=== PATIENT | male | born 1955 | race Caucasian/White ===

== ENCOUNTER 2017-05-11 12:51 | Inpatient (IN) ==
[2017-05-11] MEDS ORDERED: Polyethylene Glycol 3350 255 GM POWDER PO PRN (18:52)
[2017-05-11] MEDS ORDERED: Loratadine 10 MG TABLET PO PRN (18:52)
[2017-05-11] MEDS ORDERED: *HR* OxyCODONE/APAP 5/325 TABLET PO SCH (20:00)
[2017-05-11] MEDS ORDERED: Furosemide 20 MG TABLET PO SCH (21:00)
[2017-05-11] MEDS ORDERED: Insulin DETEMIR 100 UNIT/ML per UNIT SQ SCH (21:00)
[2017-05-11] MEDS ORDERED: Insulin LISPRO 300 UNITS/3 ML VIAL SQ SCH (21:00)
[2017-05-11] MEDS: Aspirin Enteric Coated 325 MG Tablet PO SCH (22:06)
[2017-05-11] MEDS: Melatonin 3 MG TABLET PO PRN (22:07)
[2017-05-11] MEDS: Budesonide/Formoterol 160/4.5 MDI IH SCH (22:07)
[2017-05-11] MEDS: *HR* OxyCODONE/APAP 5/325 TABLET PO PRN (22:08)
[2017-05-12] MEDS: *HR* OxyCODONE/APAP 5/325 TABLET PO PRN ×4 (04:52→21:28)
[2017-05-12 05:46] LABS: Basophils % 0.3 %; Eosinophils # 0.6 K/mcL (0.0-0.6); Eosinophils % 6.3 %; Hematocrit 39.9 % (37.5-50.1); Hemoglobin 13.5 g/dL (12.9-16.9); Immature Granulocytes % 0.3 % (0-4); Lymphocytes # 1.7 K/mcL (0.6-4.6); Lymphocytes % 18.6 %; Mean Corpuscular HGB Conc 33.8 g/dL (31.6-35.5); Mean Corpuscular Hemoglobin 30.2 pg (28.0-33.3); Mean Corpuscular Volume 89.3 fL (83.0-100.0); Mean Platelet Volume 8.6 fL (9.4-12.4); Monocytes # 0.6 K/mcL (0.0-1.3); Monocytes % 6.3 %; Neutrophils # 6.1 K/mcL (1.6-8.9); Platelet Count 281 K/mcL (140-400); Red Blood Count 4.47 M/mcL (4.19-5.50); Red Cell Distribution Width 14.1 % (11.5-14.5); Segmented Neutrophils % 68.2 %
[2017-05-12 05:47] LABS: INR 1.1; Prothrombin Time 12.2 Seconds (9.4-12.1)
[2017-05-12 05:56] LABS: BUN/Creatinine Ratio 18 (6-26); Blood Urea Nitrogen 13 mg/dL (8-26); Calcium 9.5 mg/dL (8.6-10.8); Carbon Dioxide 25 mEq/L (19-29); Chloride 100 mEq/L (98-109); Glucose 175 mg/dL (70-99); Osmolality,Calculated 286 (280-300); Potassium 4.2 mEq/L (3.5-4.5); Sodium 136 mEq/L (136-145); eGFR For African Americans > 60 (> 60); eGFR For Non-African Americans > 60 (> 60)
[2017-05-12] MEDS: Insulin LISPRO 300 UNITS/3 ML VIAL SQ SCH ×3 (08:59→16:49)
[2017-05-12] MEDS: Furosemide 20 MG TABLET PO SCH ×2 (08:59→16:26)
[2017-05-12] MEDS: Budesonide/Formoterol 160/4.5 MDI IH SCH ×2 (08:59→20:33)
[2017-05-12] MEDS: Insulin DETEMIR 100 UNIT/ML X5UNITS SQ SCH ×2 (09:12→20:32)
--- NOTE | 2017-05-12 09:21 | Internal Med History&Physical ---
Date of Encounter: 05/12/17 Time of Encounter: 09:18 Assessment and Plan (1) S/P AAA repair Current visit: Yes Status: Acute PT OT to evaluate for therapeutic strengthening exercises, functional mobility, transfer and gait training. Patient has been making good progress. Still has weakness in the left lower leg. Reports that he requires assist with legs to get back into bed. Patient is still at risk for falls. Still has some balance issue. Able to ambulated; 5 feet today with contact guard. Gets tired fast. (2) Diabetes 1.5, managed as type 2 Current visit: Yes Status: Acute Accu-Chek 200 today Internal Medicine - H&P: HPI Admitted From: Intrahospital Transfer Plans for Post Hospital Care: Home History of present illness: Mr. Ruffin is a 62 year old male transferred to this facility status post AAA repair. The patient complications of spinal stroke. Patient has a history of coronary disease. He has had CABG surgery. He is diabetic. On today's examination he denies any chest pain. No shortness of breath. He still has some dyspnea on exertion. No nausea. No vomiting. Today's examination he still complains of right hip pain. Past Med Surg Social Fam HX - Past Medical History Medical history: aortic aneurysm, asthma, coronary artery disease, diabetes, hyperlipidemia, hypertension, myocardial infarction, other Psychiatric history: no psych history - Past Surgical History Surgical History: cholecystectomy, coronary bypass (CABG) - Social History Smoking Status: Former smoker Smokeless Tobacco Status: No Alcohol use: none Drug use: none - Family History Mother Hx Family Cardiac Disorders: Yes Hx Family Respiratory Disorders: No Hx Family Cancer: No Hx Family GI Disorders: No Hx Family Genitourinary Disorders: No Hx Family Endocrine Disorder: Yes (DM) Hx Family Musculoskeletal Disorders: No Hx Family Neuromuscular Disorders: No Hx Family Neurologic Disorders: No Hx Family HEENT Disorders: No Hx Family Autoimmune Disorders: No Hx Family Reproductive Disorders: No Hx Family Psychosocial Disorders: No Hx Family Medical Disorders: No Father Hx Family Cardiac Disorders: Yes Hx Family Respiratory Disorders: No Hx Family Cancer: No Hx Family GI Disorders: No Hx Family Genitourinary Disorders: No Hx Family Endocrine Disorder: Yes (DM) Hx Family Musculoskeletal Disorders: No Hx Family Neuromuscular Disorders: No Hx Family Neurologic Disorders: No Hx Family HEENT Disorders: No Hx Family Autoimmune Disorders: No Hx Family Reproductive Disorders: No Hx Family Psychosocial Disorders: No Hx Family Medical Disorders: No Internal Medicine - H&P: Meds Albuterol Sulfate [Proair Hfa] 2 inh IH Q6HR PRN 05/11/17 [History] Aspirin [Ecotrin] 325 mg PO HS 05/11/17 [History] Budesonide/Formoterol 160/4.5 [Symbicort 160/4.5] 2 inh IH BID 05/11/17 [History ] Cetirizine HCl [Zyrtec] 10 mg PO DAILY PRN 05/11/17 [History] Clopidogrel Bisulfate [Plavix] 75 mg PO DAILY 05/11/17 [History] Furosemide [Lasix] 20 mg PO BID 05/11/17 [History] Insulin DETEMIR [Levemir] 40 unit SQ BID 05/11/17 [History] Insulin LISPRO [HumaLOG] 26 units SQ TID 05/11/17 [History] Melatonin [Melatin] 3 mg PO HS PRN 05/11/17 [History] Naproxen Sodium [Aleve] 220 mg PO BID PRN 05/11/17 [History] OxyCODONE/APAP 5/325 [Percocet 5/325 MG] 1 each PO Q4HR 05/11/17 [History] Polyethylene Glycol 3350 [MiraLAX Powder Bulk 17.9 Oz] 17 g PO DAILY PRN [History] Potassium Chloride [K-Tab ER] 10 meq PO DAILY 05/11/17 [History] Potassium Chloride [K-Tab ER] 10 meq PO DAILY 05/11/17 [History] Allergies Cephalosporins Allergy (Verified 05/11/17 18:39) Anaphylaxis montelukast [From Singulair] Allergy (Verified 05/11/17 18:39) Hives Penicillins Allergy (Verified 05/11/17 18:39) Anaphylaxis yellow dye Allergy (Verified 05/11/17 18:39) Anaphylaxis metformin Adverse Reaction (Verified 05/11/17 18:39) Muscle Pain Fbnyjiu-Cxf-Flj Reductase Inhibitor [Statins] Adverse Reaction (Verified 18:39) Muscle Pain All Systems PM: A 10-system review of systems was performed and is negative for pertinent findings except as documented above in the HPI. - Constitutional Constitutional: fatigue - Cardiovascular Cardiovascular ROS IM: dyspnea on exertion, no chest pain, no diaphoresis, no dyspnea, no lightheadedness, no palpitations, no syncope - Respiratory Respiratory: no cough, no dyspnea, no wheezing, no excessive phlegm production - Gastrointestinal Gastrointestinal: no abdominal pain, no diarrhea, no hematemesis, no hematochezia, no melena, no nausea, no vomiting - Musculoskeletal Musculoskeletal ROS IM: arthralgias, back pain, stiffness - Constitutional Vitals: Temp Pulse Resp BP Pulse Ox 97.6 F 72 18 146/84 93 05/12/17 08:42 05/12/17 08:42 05/12/17 08:42 05/12/17 08:42 05/12/17 08:42 General appearance: Present: A&O X 3, pleasant, no acute distress - Respiratory Respiratory exam: Present: CTAB. Absent: accessory muscle use, rales, rhonchi, wheezes - Cardiovascular Cardiovascular exam: Present: RRR, +S1, +S2. Absent: diastolic murmur, gallop, rubs, systolic murmur - GI/Abdominal GI/Abdominal exam: Present: normal bowel sounds, soft, no peritoneal signs. Absent: distended, tenderness - Extremities Exam Extremities exam: Present: warm, radial pulses palpable and symetrical. Absent : calf tenderness, cyanotic, pedal edema - Neurological Exam Neurological exam: Present: CN II-XII intact, oriented X3. Absent: facial droop , speech deficit Internal Med - H&P Results - Labs CBC & Chem 7: 05/12/17 05:30 05/12/17 05:30 Labs: Short CBC 05/12/17 Range/Units 05:30 WBC 8.9 (4.3-11.1) K/mcL Hgb 13.5 (12.9-16.9) g/dL Hct 39.9 (37.5-50.1) % Plt Count 281 (140-400) K/mcL Neutrophils # 6.1 (1.6-8.9) K/mcL BMP 05/12/17 05:30 Sodium 136 Potassium 4.2 Chloride 100 Carbon Dioxide 25 BUN 13 Creatinine 0.74 Glucose 175 H Calcium 9.5 - VTE Documentation of Mechanical Device: Graduated compression elastic hosiery
[2017-05-12] MEDS: Aspirin Enteric Coated 325 MG Tablet PO SCH (20:33)
[2017-05-12] MEDS: Melatonin 3 MG TABLET PO PRN (20:33)
[2017-05-13] MEDS: *HR* OxyCODONE/APAP 5/325 TABLET PO PRN ×3 (04:45→14:09)
[2017-05-13] MEDS: Furosemide 20 MG TABLET PO SCH ×2 (08:29→17:33)
[2017-05-13] MEDS: Budesonide/Formoterol 160/4.5 MDI IH SCH ×2 (08:30→21:11)
[2017-05-13] MEDS: Insulin LISPRO 300 UNITS/3 ML VIAL SQ SCH ×3 (08:30→17:33)
[2017-05-13] MEDS: Insulin DETEMIR 100 UNIT/ML X5UNITS SQ SCH ×2 (08:31→21:09)
--- NOTE | 2017-05-13 13:35 | Internal Med Progress Note ---
Date of Encounter: 05/13/17 Time of Encounter: 13:33 - Assessment and plan (1) Infarction of spinal cord Current Visit: Yes Status: Acute Assessment and plan: Patient's here in therapy for arouses left lower extremity. This is improving and had an infarction of the spinal cord (2) S/P AAA repair Current Visit: Yes Status: Acute Assessment and plan: Apparently had a AAA repair and I am assuming then some blood supply was lost to that area of the cord (3) Diabetes 1.5, managed as type 2 Current Visit: Yes Status: Acute Assessment and plan: Following blood sugar - Time Spent With Patient less than 15 minutes - Subjective Interval history: Patient's doing well patient is relatively young. He had infarct and ischemic episode of his spinal cord. The good news is what was paralyzed in the hospital acutely there is now back to having feeling and some function. I suspect he should get 85-90% of his function back and is working with all of her therapist - Constitutional Vitals: Temp Pulse Resp BP Pulse Ox 97.3 F L 79 16 127/74 95 05/13/17 07:45 05/13/17 07:45 05/13/17 07:45 05/13/17 07:45 05/13/17 07:45 General appearance: Present: A&O X 3, pleasant, no acute distress - Head Head exam: Present: atraumatic, normal inspection, normocephalic - Neck Neck exam general surgery: Present: supple, trachea midline. Absent: lymphadenopathy - Respiratory Respiratory exam: Present: CTAB. Absent: accessory muscle use, rales, rhonchi, wheezes - Cardiovascular Cardiovascular exam: Present: RRR, +S1, +S2. Absent: diastolic murmur, gallop, rubs, systolic murmur Internal Medicine: Result - Labs CBC & Chem 7: 05/12/17 05:30 05/12/17 05:30 Labs: Lab is stable - ABG Interpretation ABG results: PT/INR, D-dimer PT 12.2 Seconds (9.4-12.1) H 05/12/17 05:30 - VTE Documentation of Mechanical Device: Graduated compression elastic hosiery Consult Discharge Plan - Plan Referrals: Binta Hebert, MILITARY TECHNOLOGY MANAGER [Primary Care Provider] -
--- NOTE | 2017-05-13 15:20 | Physcial Medicine-Consult Note ---
Date of Encounter: 05/13/17 Time of Encounter: 15:16 Physical Medicine - AP (1) Infarction of spinal cord Status: Acute Assessment and plan: 1. Mr. Ruffin has had significant return of function in his lower limbs since his initial infarct. He is currently suffering from pain and spasms in the hips. We will begin prn flexeril to address his muscle spasms and diminish his reliance on oxycodone for pain. He is unable to take gabapentin due to intolerance of side effects from the medication. At this point, his dysesthesias are not causing him significant distress. He will continue with intensive PT/OT/TR to address gait, safety, transfers and ADLs. Code(s): G95.11 - Acute infarction of spinal cord (embolic) (nonembolic) SNOMED Code(s): 972974586 Physical Medicine - HPI - Data of Consult Patient: new to practice Consult date: 05/13/17 Requesting Physician: Kang Meadows DO Primary Care Provider: Binta Hebert - Consult Narrative Reason for consult: Spinal cord injury History of present illness: Mr. Ruffin is a 62 year old male who underwent repair for an abdominal aortic aneurysm on 05/04/17. Patient awoke following surgery with bilateral lower limb paresis. Initial head CT was negative for infarct. An mri of his spinal cord revealed a spinal cord infarct. He has had significant return of function to the lower limbs. He denies any bladder incontinence. He is complaining of constipation. He reports pain and muscle spasm in the right gluteal muscle. He continues to have weakness in the left foot. CC: Kang Meadows DO Past Med Surg Social Fam HX - Past Medical History Medical history: aortic aneurysm, asthma, coronary artery disease, diabetes, hyperlipidemia, hypertension, myocardial infarction, other Psychiatric history: no psych history - Past Surgical History Surgical History: cholecystectomy, coronary bypass (CABG) - Social History Smoking Status: Former smoker Smokeless Tobacco Status: No Alcohol use: none Drug use: none - Family History Mother Hx Family Cardiac Disorders: Yes Hx Family Respiratory Disorders: No Hx Family Cancer: No Hx Family GI Disorders: No Hx Family Genitourinary Disorders: No Hx Family Endocrine Disorder: Yes (DM) Hx Family Musculoskeletal Disorders: No Hx Family Neuromuscular Disorders: No Hx Family Neurologic Disorders: No Hx Family HEENT Disorders: No Hx Family Autoimmune Disorders: No Hx Family Reproductive Disorders: No Hx Family Psychosocial Disorders: No Hx Family Medical Disorders: No Father Hx Family Cardiac Disorders: Yes Hx Family Respiratory Disorders: No Hx Family Cancer: No Hx Family GI Disorders: No Hx Family Genitourinary Disorders: No Hx Family Endocrine Disorder: Yes (DM) Hx Family Musculoskeletal Disorders: No Hx Family Neuromuscular Disorders: No Hx Family Neurologic Disorders: No Hx Family HEENT Disorders: No Hx Family Autoimmune Disorders: No Hx Family Reproductive Disorders: No Hx Family Psychosocial Disorders: No Hx Family Medical Disorders: No Medications and Allergies Albuterol Sulfate [Proair Hfa] 2 inh IH Q6HR PRN 05/11/17 [History] Aspirin [Ecotrin] 325 mg PO HS 05/11/17 [History] Budesonide/Formoterol 160/4.5 [Symbicort 160/4.5] 2 inh IH BID 05/11/17 [History ] Cetirizine HCl [Zyrtec] 10 mg PO DAILY PRN 05/11/17 [History] Clopidogrel Bisulfate [Plavix] 75 mg PO DAILY 05/11/17 [History] Furosemide [Lasix] 20 mg PO BID 05/11/17 [History] Insulin DETEMIR [Levemir] 40 unit SQ BID 05/11/17 [History] Insulin LISPRO [HumaLOG] 26 units SQ TID 05/11/17 [History] Melatonin [Melatin] 3 mg PO HS PRN 05/11/17 [History] Naproxen Sodium [Aleve] 220 mg PO BID PRN 05/11/17 [History] OxyCODONE/APAP 5/325 [Percocet 5/325 MG] 1 each PO Q4HR 05/11/17 [History] Polyethylene Glycol 3350 [MiraLAX Powder Bulk 17.9 Oz] 17 g PO DAILY PRN [History] Potassium Chloride [K-Tab ER] 10 meq PO DAILY 05/11/17 [History] Potassium Chloride [K-Tab ER] 10 meq PO DAILY 05/11/17 [History] Allergies Cephalosporins Allergy (Verified 05/11/17 18:39) Anaphylaxis montelukast [From Singulair] Allergy (Verified 05/11/17 18:39) Hives Penicillins Allergy (Verified 05/11/17 18:39) Anaphylaxis yellow dye Allergy (Verified 05/11/17 18:39) Anaphylaxis metformin Adverse Reaction (Verified 05/11/17 18:39) Muscle Pain Bmavvdq-Ome-Ysf Reductase Inhibitor [Statins] Adverse Reaction (Verified 18:39) Muscle Pain - Constitutional Constitutional: Present: weakness. Absent: anorexia, chills, fever(s) - Cardiovascular Cardiovascular: Absent: chest pain, diaphoresis - Respiratory Respiratory: Absent: dyspnea on exertion - Gastrointestinal Gastrointestinal: Present: constipation. Absent: abdominal pain, fecal incontinence, nausea - Genitourinary Genitourinary: as per HPI - Musculoskeletal Musculoskeletal: Present: abnormal gait, arthralgias, back pain - Neurological Neurological: Present: focal weakness, paresthesias, tingling Physical Medicine - Exam - Constitutional Vitals: Temp Pulse Resp BP Pulse Ox 97.3 F L 79 16 127/74 95 05/13/17 07:45 05/13/17 07:45 05/13/17 07:45 05/13/17 07:45 05/13/17 07:45 General appearance: cooperative, no acute distress - Head Head exam: Present: atraumatic, normal inspection - Respiratory Respiratory exam: Present: CTAB - Cardiovascular Cardiovascular exam: Present: RRR - GI/Abdominal GI/Abdominal exam: Present: diminished bowel sounds, soft. Absent: tenderness - Extremities Exam Extremities exam: Absent: calf tenderness Additional comments: Lower limb reflexes are absent symmetrically in the lower limbs. No clonus on exam. Motor strength is 5/5 in the bilateral lower limbs with the exception of left DF 4/5, EHL 3/5, PF 4/5. Physical Medicine - Results - Labs CBC & Chem 7: 05/12/17 05:30 05/12/17 05:30 Consult Discharge Plan - Plan Referrals: Binta Hebert CNP [Primary Care Provider] -
[2017-05-13] MEDS: Aspirin Enteric Coated 325 MG Tablet PO SCH (21:09)
[2017-05-14] MEDS: *HR* OxyCODONE/APAP 5/325 TABLET PO PRN ×4 (00:11→21:30)
[2017-05-14] MEDS: Insulin DETEMIR 100 UNIT/ML X5UNITS SQ SCH ×2 (07:47→21:32)
[2017-05-14] MEDS: Furosemide 20 MG TABLET PO SCH ×2 (07:47→17:01)
[2017-05-14] MEDS: Budesonide/Formoterol 160/4.5 MDI IH SCH ×2 (07:48→21:30)
[2017-05-14] MEDS: Insulin LISPRO 300 UNITS/3 ML VIAL SQ SCH ×3 (07:48→16:56)
--- NOTE | 2017-05-14 11:55 | Internal Med Progress Note ---
Date of Encounter: 05/14/17 Time of Encounter: 11:53 - Assessment and plan (1) Infarction of spinal cord Current Visit: Yes Status: Acute Assessment and plan: continiuing therapy.slowly improving function. (2) S/P AAA repair Current Visit: Yes Status: Acute Assessment and plan: healing so far very well. (3) Diabetes 1.5, managed as type 2 Current Visit: Yes Status: Acute Assessment and plan: following blood sugars. - Time Spent With Patient less than 15 minutes - Subjective Interval history: pt. c/o legs rubberly after muscle relxant. Will hold. Blood sugars high.Is on sliding scale. - Constitutional Vitals: Temp Pulse Resp BP Pulse Ox 97.8 F 78 16 139/86 93 05/14/17 07:07 05/14/17 07:07 05/14/17 07:07 05/14/17 07:07 05/14/17 07:07 General appearance: Present: A&O X 3, pleasant, no acute distress - Head Head exam: Present: atraumatic, normal inspection, normocephalic - Neck Neck exam general surgery: Present: supple, trachea midline. Absent: lymphadenopathy - Respiratory Respiratory exam: Present: CTAB. Absent: accessory muscle use, rales, rhonchi, wheezes - Cardiovascular Cardiovascular exam: Present: RRR, +S1, +S2. Absent: diastolic murmur, gallop, rubs, systolic murmur Internal Medicine: Result - Labs CBC & Chem 7: 05/12/17 05:30 05/12/17 05:30 Labs: lab ok except for blood sugars. - ABG Interpretation ABG results: PT/INR, D-dimer PT 12.2 Seconds (9.4-12.1) H 05/12/17 05:30 - VTE Documentation of Mechanical Device: Graduated compression elastic hosiery Consult Discharge Plan - Plan Referrals: Binta Hebert, RUBBER AND PLASTICS WORKER [Primary Care Provider] -
[2017-05-14] MEDS: Aspirin Enteric Coated 325 MG Tablet PO SCH (21:30)
[2017-05-14] MEDS: Melatonin 3 MG TABLET PO PRN (21:30)
[2017-05-15] MEDS: *HR* OxyCODONE/APAP 5/325 TABLET PO PRN ×4 (04:44→22:20)
[2017-05-15] MEDS: Furosemide 20 MG TABLET PO SCH ×2 (08:26→17:18)
[2017-05-15] MEDS: Insulin LISPRO 300 UNITS/3 ML VIAL SQ SCH ×3 (08:26→17:09)
[2017-05-15] MEDS: Insulin DETEMIR 100 UNIT/ML X5UNITS SQ SCH ×2 (08:38→20:38)
[2017-05-15] MEDS: Budesonide/Formoterol 160/4.5 MDI IH SCH ×2 (08:41→20:37)
--- NOTE | 2017-05-15 14:12 | Internal Med Progress Note ---
Date of Encounter: 05/15/17 Time of Encounter: 14:10 - Assessment and plan (1) Infarction of spinal cord Current Visit: Yes Status: Acute Assessment and plan: Patient apparently also blunts spinal cord infarction post AAA repair (2) S/P AAA repair Current Visit: Yes Status: Acute Assessment and plan: She no triple a repair (3) Diabetes 1.5, managed as type 2 Current Visit: Yes Status: Acute Assessment and plan: noted - Time Spent With Patient less than 15 minutes - Subjective Interval history: Earlier date if symptoms from the muscle relaxant have resolved. Patient's myeloid legs are better eating and doing well. - Constitutional Vitals: Temp Pulse Resp BP Pulse Ox 97.8 F 72 14 122/77 92 05/15/17 07:22 05/15/17 07:22 05/15/17 07:22 05/15/17 07:22 05/15/17 07:22 General appearance: Present: A&O X 3, pleasant, no acute distress - Head Head exam: Present: atraumatic, normocephalic - Neck Neck exam general surgery: Present: supple, trachea midline. Absent: lymphadenopathy - Respiratory Respiratory exam: Present: CTAB. Absent: accessory muscle use, rales, rhonchi, wheezes - Cardiovascular Cardiovascular exam: Present: RRR, +S1, +S2. Absent: diastolic murmur, gallop, rubs, systolic murmur Internal Medicine: Result - Labs CBC & Chem 7: 05/12/17 05:30 05/12/17 05:30 Labs: Lab is stable following blood sugars - ABG Interpretation ABG results: PT/INR, D-dimer PT 12.2 Seconds (9.4-12.1) H 05/12/17 05:30 - VTE Documentation of Mechanical Device: Graduated compression elastic hosiery Consult Discharge Plan - Plan Referrals: Binta Hebert CNP [Primary Care Provider] -
[2017-05-15] MEDS: Melatonin 3 MG TABLET PO PRN (20:37)
[2017-05-15] MEDS: Aspirin Enteric Coated 325 MG Tablet PO SCH (20:37)
[2017-05-16] MEDS: *HR* OxyCODONE/APAP 5/325 TABLET PO PRN ×5 (04:52→21:00)
[2017-05-16] MEDS: Furosemide 20 MG TABLET PO SCH ×2 (08:14→16:07)
[2017-05-16] MEDS: Insulin DETEMIR 100 UNIT/ML X5UNITS SQ SCH ×2 (08:14→21:02)
[2017-05-16] MEDS: Insulin LISPRO 300 UNITS/3 ML VIAL SQ SCH ×3 (08:15→16:38)
[2017-05-16] MEDS: Budesonide/Formoterol 160/4.5 MDI IH SCH ×2 (12:34→21:00)
--- NOTE | 2017-05-16 18:56 | Internal Med Progress Note ---
Date of Encounter: 05/16/17 Time of Encounter: 18:53 - Assessment and plan (1) S/P AAA repair Current Visit: Yes Status: Acute Assessment and plan: T and OT have been working to improve his endurance, safety and improving his ADLs.has had significant return of function in his lower limbs since his initial infarct. He is currently suffering from pain and spasms in the hips. Flexeril is helping with the muscle spasm (2) Diabetes 1.5, managed as type 2 Current Visit: Yes Status: Acute Assessment and plan: Accu-Chek 185 this morning. On Levemir and Humalog oted - Time Spent With Patient less than 15 minutes - Subjective Interval history: Feels tired today. No new complaints otherwise. No headache. No shortness of breath. No chest pain. Is able to walk alcohol today with minimal discomfort however he got tired. - Constitutional Vitals: Temp Pulse Resp BP Pulse Ox 98.1 F 65 15 132/63 94 05/16/17 07:31 05/16/17 07:31 05/16/17 07:31 05/16/17 07:31 05/16/17 07:31 General appearance: Present: A&O X 3, pleasant, no acute distress - Respiratory Respiratory exam: Present: CTAB. Absent: accessory muscle use, rales, rhonchi, wheezes - Cardiovascular Cardiovascular exam: Present: RRR, +S1, +S2. Absent: diastolic murmur, gallop, rubs, systolic murmur - GI/Abdominal GI/Abdominal exam: Present: normal bowel sounds, soft, no peritoneal signs. Absent: distended, tenderness - Expanded Lower Extremities Exam Lower Leg exam: Present: swelling Internal Medicine: Result - Labs CBC & Chem 7: 05/12/17 05:30 05/12/17 05:30 - ABG Interpretation ABG results: PT/INR, D-dimer PT 12.2 Seconds (9.4-12.1) H 05/12/17 05:30 - VTE Documentation of Mechanical Device: Graduated compression elastic hosiery Consult Discharge Plan - Plan Referrals: Binta Hebert, KENYON [Primary Care Provider] -
[2017-05-16] MEDS: Melatonin 3 MG TABLET PO PRN (21:00)
[2017-05-16] MEDS: Aspirin Enteric Coated 325 MG Tablet PO SCH (21:00)
[2017-05-17] MEDS: *HR* OxyCODONE/APAP 5/325 TABLET PO PRN ×3 (05:30→21:33)
[2017-05-17] MEDS: Budesonide/Formoterol 160/4.5 MDI IH SCH ×2 (08:29→21:35)
[2017-05-17] MEDS: Insulin LISPRO 300 UNITS/3 ML VIAL SQ SCH ×3 (08:30→17:13)
[2017-05-17] MEDS: Furosemide 20 MG TABLET PO SCH ×2 (08:35→17:13)
[2017-05-17] MEDS: Insulin DETEMIR 100 UNIT/ML X5UNITS SQ SCH ×2 (08:37→21:34)
--- NOTE | 2017-05-17 09:10 | Internal Med Progress Note ---
Date of Encounter: 05/17/17 Time of Encounter: 09:09 - Assessment and plan (1) S/P AAA repair Current Visit: Yes Status: Acute Assessment and plan: T and OT have been working to improve his endurance, safety and improving his ADLs.has had significant return of function in his lower limbs since his initial infarct. He is currently suffering from pain and spasms in the hips. Flexeril is helping with the muscle spasm (2) Diabetes 1.5, managed as type 2 Current Visit: Yes Status: Acute Assessment and plan: Accu-Chek 185 this morning. On Levemir and Humalog oted - Time Spent With Patient less than 15 minutes - Subjective Interval history: Feels tired today. No new complaints otherwise. No headache. No shortness of breath. No chest pain. Is able to walk further today with minimal discomfort however he got tired. - Constitutional Vitals: Temp Pulse Resp BP Pulse Ox 97.6 F 66 18 149/79 96 05/17/17 07:24 05/17/17 07:24 05/17/17 07:24 05/17/17 07:24 05/17/17 07:24 General appearance: Present: A&O X 3, pleasant, no acute distress - Respiratory Respiratory exam: Present: CTAB. Absent: accessory muscle use, rales, rhonchi, wheezes - Cardiovascular Cardiovascular exam: Present: RRR, +S1, +S2. Absent: diastolic murmur, gallop, rubs, systolic murmur - GI/Abdominal GI/Abdominal exam: Present: normal bowel sounds, soft, no peritoneal signs. Absent: distended, tenderness - Extremities Exam Extremities exam: Present: warm, radial pulses palpable and symetrical. Absent : calf tenderness, cyanotic, pedal edema Internal Medicine: Result - Labs CBC & Chem 7: 05/12/17 05:30 05/12/17 05:30 - ABG Interpretation ABG results: PT/INR, D-dimer PT 12.2 Seconds (9.4-12.1) H 05/12/17 05:30 - VTE Documentation of Mechanical Device: Graduated compression elastic hosiery Consult Discharge Plan - Plan Referrals: Binta Hebert, KENYON [Primary Care Provider] -
[2017-05-17] MEDS: Melatonin 3 MG TABLET PO PRN (21:33)
[2017-05-17] MEDS: Aspirin Enteric Coated 325 MG Tablet PO SCH (21:33)
[2017-05-18] MEDS: *HR* OxyCODONE/APAP 5/325 TABLET PO PRN ×4 (05:00→21:43)
[2017-05-18 05:34] LABS: BUN/Creatinine Ratio 12 (6-26); Blood Urea Nitrogen 9 mg/dL (8-26); Calcium 9.2 mg/dL (8.6-10.8); Carbon Dioxide 27 mEq/L (19-29); Chloride 102 mEq/L (98-109); Glucose 177 mg/dL (70-99); Osmolality,Calculated 289 (280-300); Potassium 4.5 mEq/L (3.5-4.5); Sodium 138 mEq/L (136-145); eGFR For African Americans > 60 (> 60); eGFR For Non-African Americans > 60 (> 60)
[2017-05-18 05:35] LABS: Basophils # 0.1 K/mcL (0.0-0.2); Basophils % 0.6 %; Eosinophils # 0.7 K/mcL (0.0-0.6); Eosinophils % 8.4 %; Hematocrit 38.8 % (37.5-50.1); Hemoglobin 13.1 g/dL (12.9-16.9); Immature Granulocytes % 0.4 % (0-4); Lymphocytes # 1.6 K/mcL (0.6-4.6); Lymphocytes % 19.7 %; Mean Corpuscular HGB Conc 33.8 g/dL (31.6-35.5); Mean Corpuscular Hemoglobin 30.5 pg (28.0-33.3); Mean Corpuscular Volume 90.2 fL (83.0-100.0); Mean Platelet Volume 8.8 fL (9.4-12.4); Monocytes # 0.6 K/mcL (0.0-1.3); Monocytes % 7.8 %; Neutrophils # 5.1 K/mcL (1.6-8.9); Platelet Count 353 K/mcL (140-400); Segmented Neutrophils % 63.1 %
[2017-05-18] MEDS: Insulin DETEMIR 100 UNIT/ML X5UNITS SQ SCH ×2 (08:09→20:58)
[2017-05-18] MEDS: Furosemide 20 MG TABLET PO SCH ×2 (08:09→16:45)
[2017-05-18] MEDS: Insulin LISPRO 300 UNITS/3 ML VIAL SQ SCH ×3 (08:09→16:47)
[2017-05-18] MEDS: Budesonide/Formoterol 160/4.5 MDI IH SCH ×2 (08:10→20:58)
--- NOTE | 2017-05-18 13:42 | Internal Med Progress Note ---
Date of Encounter: 05/18/17 Time of Encounter: 13:40 - Assessment and plan (1) Infarction of spinal cord Current Visit: Yes Status: Acute Assessment and plan: Patient apparently had a infarction spinal cord due to stent placement of the aorta. This is really generally resolved in terms of function of his left side especially his left leg. (2) S/P AAA repair Current Visit: Yes Status: Acute Assessment and plan: Adolph healing well (3) Diabetes 1.5, managed as type 2 Current Visit: Yes Status: Acute Assessment and plan: Noted being followed. - Time Spent With Patient less than 15 minutes - Subjective Interval history: Patient significantly improved since last week. I am going to discuss whether he feels that depression is a problem or not. He is improved though mentally significantly with the improvement of his function and leg - Constitutional Vitals: Temp Pulse Resp BP Pulse Ox 97.8 F 67 18 139/81 94 05/18/17 07:00 05/18/17 07:00 05/18/17 07:00 05/18/17 07:00 05/18/17 07:00 General appearance: Present: A&O X 3, pleasant, no acute distress - Head Head exam: Present: atraumatic, normal inspection, normocephalic - Neck Neck exam general surgery: Present: supple, trachea midline. Absent: lymphadenopathy - Respiratory Respiratory exam: Present: CTAB. Absent: accessory muscle use, rales, rhonchi, wheezes - Cardiovascular Cardiovascular exam: Present: RRR, +S1, +S2. Absent: diastolic murmur, gallop, rubs, systolic murmur Internal Medicine: Result - Labs CBC & Chem 7: 05/18/17 04:55 05/18/17 04:55 Labs: Short CBC 05/18/17 Range/Units 04:55 WBC 8.1 (4.3-11.1) K/mcL Hgb 13.1 (12.9-16.9) g/dL Hct 38.8 (37.5-50.1) % Plt Count 353 (140-400) K/mcL Neutrophils # 5.1 (1.6-8.9) K/mcL BMP 05/18/17 04:55 Sodium 138 Potassium 4.5 Chloride 102 Carbon Dioxide 27 BUN 9 Creatinine 0.76 Glucose 177 H Calcium 9.2 Lab is okay - ABG Interpretation ABG results: PT/INR, D-dimer PT 12.2 Seconds (9.4-12.1) H 05/12/17 05:30 - VTE Documentation of Mechanical Device: Graduated compression elastic hosiery Consult Discharge Plan - Plan Referrals: Binta Hebert CNP [Primary Care Provider] -
[2017-05-18] MEDS: Aspirin Enteric Coated 325 MG Tablet PO SCH (20:58)
[2017-05-18] MEDS: Melatonin 3 MG TABLET PO PRN (20:58)
[2017-05-19] MEDS: *HR* OxyCODONE/APAP 5/325 TABLET PO PRN ×4 (04:46→21:58)
[2017-05-19] MEDS: Insulin LISPRO 300 UNITS/3 ML VIAL SQ SCH ×3 (08:10→16:50)
[2017-05-19] MEDS: Furosemide 20 MG TABLET PO SCH ×2 (08:26→17:38)
[2017-05-19] MEDS: Budesonide/Formoterol 160/4.5 MDI IH SCH ×2 (08:26→22:00)
[2017-05-19] MEDS: Insulin DETEMIR 100 UNIT/ML X5UNITS SQ SCH ×3 (08:26→21:57)
--- NOTE | 2017-05-19 13:14 | Internal Med Progress Note ---
Date of Encounter: 05/19/17 Time of Encounter: 13:12 - Assessment and plan (1) Infarction of spinal cord Current Visit: Yes Status: Acute Assessment and plan: This is significantly improved. With going from paralysis to the left leg now ambulating in the garner with a walker (2) S/P AAA repair Current Visit: Yes Status: Acute Assessment and plan: Sully well (3) Diabetes 1.5, managed as type 2 Current Visit: Yes Status: Acute Assessment and plan: Being followed - Time Spent With Patient less than 15 minutes - Subjective Interval history: Patient ambulating between the room and the gym and along the halls. Doing well very satisfactory progress - Constitutional Vitals: Temp Pulse Resp BP Pulse Ox 98.8 F 64 16 143/84 94 05/19/17 07:11 05/19/17 07:11 05/19/17 07:11 05/19/17 07:11 05/19/17 07:11 General appearance: Present: cooperative, A&O X 3, pleasant, no acute distress - Head Head exam: Present: atraumatic, normal inspection, normocephalic - Neck Neck exam general surgery: Present: supple, trachea midline. Absent: lymphadenopathy - Respiratory Respiratory exam: Present: CTAB. Absent: accessory muscle use, rales, rhonchi, wheezes - Cardiovascular Cardiovascular exam: Present: RRR, +S1, +S2. Absent: diastolic murmur, gallop, rubs, systolic murmur Internal Medicine: Result - Labs CBC & Chem 7: 05/18/17 04:55 05/18/17 04:55 Labs: Lab is stable - ABG Interpretation ABG results: PT/INR, D-dimer PT 12.2 Seconds (9.4-12.1) H 05/12/17 05:30 - VTE Documentation of Mechanical Device: Graduated compression elastic hosiery Consult Discharge Plan - Plan Referrals: Binta Hebert FRUIT DUMPER [Primary Care Provider] -
[2017-05-19] MEDS: Melatonin 3 MG TABLET PO PRN (21:57)
[2017-05-19] MEDS: Aspirin Enteric Coated 325 MG Tablet PO SCH (21:57)
[2017-05-20] MEDS: *HR* OxyCODONE/APAP 5/325 TABLET PO PRN ×4 (05:31→21:27)
[2017-05-20] MEDS: Furosemide 20 MG TABLET PO SCH ×2 (08:09→16:37)
[2017-05-20] MEDS: Insulin DETEMIR 100 UNIT/ML X5UNITS SQ SCH ×2 (08:09→21:26)
[2017-05-20] MEDS: Insulin LISPRO 300 UNITS/3 ML VIAL SQ SCH ×3 (08:10→16:38)
[2017-05-20] MEDS: Budesonide/Formoterol 160/4.5 MDI IH SCH ×2 (08:11→16:40)
--- NOTE | 2017-05-20 12:37 | Physical Med Progress Note ---
Date of Encounter: 05/20/17 Time of Encounter: 12:30 Assessment and Plan (1) Infarction of spinal cord Current Visit: Yes Status: Acute Physical Medicine-PN: Subj Interval history: PMR PCC Note Mr. Ruffin is ambulating a 150-200feet with a wheeled walker. He complains of occasional vertigo. No falls. Patient is independent in the room. Plan for continued PT after discharge. Plan for discharge 05/21/17. - Constitutional Vitals: Vital Signs Temp Pulse Resp BP Pulse Ox 05/20/17 06:59 97.1 F L 64 16 133/79 95 05/19/17 21:00 98.4 F 72 17 138/76 95 Intake and Output 05/19/17 05/20/17 05/20/17 23:59 07:59 15:59 Intake Total 480 / 480 300 / 300 480 / 480 Output Total 550 / 550 Balance 480 / 480 -250 / -250 480 / 480 Intake: Oral 480 / 480 300 / 300 480 / 480 Output: Urine 550 / 550 Other: Meal Dinner Breakfast Percent of Meal Consumed 100% 100% # Voids 1 Blood Glucose* 196 204 133 Physical Medicine-PN: Obj Data - Labs CBC & Chem 7: 05/18/17 04:55 05/18/17 04:55 Labs: Laboratory Results - last 24 hr 05/19/17 05/19/17 05/19/17 07:57 11:16 16:21 POC Glucose 184 H 158 H 185 H 05/19/17 05/20/17 21:28 06:59 POC Glucose 196 H 204 H - ABG Interpretation ABG results: PT/INR, D-dimer PT 12.2 Seconds (9.4-12.1) H 05/12/17 05:30 - VTE Documentation of Mechanical Device: Graduated compression elastic hosiery Consult Discharge Plan - Plan Referrals: Binta Hebert, PHARMACY SERVICES REPRESENTATIVE [Primary Care Provider] -
[2017-05-20] MEDS: Aspirin Enteric Coated 325 MG Tablet PO SCH (21:26)
[2017-05-20] MEDS: Melatonin 3 MG TABLET PO PRN (21:26)
[2017-05-20 21:31] VITALS: BP 137/71
[2017-05-21] MEDS: *HR* OxyCODONE/APAP 5/325 TABLET PO PRN ×2 (05:00→12:42)
[2017-05-21] MEDS: Furosemide 20 MG TABLET PO SCH (08:02)
[2017-05-21] MEDS: Budesonide/Formoterol 160/4.5 MDI IH SCH (08:02)
[2017-05-21] MEDS: Insulin DETEMIR 100 UNIT/ML X5UNITS SQ SCH (08:03)
[2017-05-21] MEDS: Insulin LISPRO 300 UNITS/3 ML VIAL SQ SCH ×2 (08:08→12:39)
--- NOTE | 2017-05-21 11:18 | Discharge Summary ---
Date of Encounter: 05/21/17 Time of Encounter: 11:00 - Discharge Diagnosis (1) Infarction of spinal cord Priority: Primary Status: Acute (2) S/P AAA repair Priority: Primary Status: Acute (3) Diabetes 1.5, managed as type 2 Priority: Secondary Status: Acute - Discharge Medications Home Medications: Albuterol Sulfate [Proair Hfa] 2 inh IH Q6HR PRN 05/11/17 [History] Aspirin [Ecotrin] 325 mg PO HS 05/11/17 [History] Budesonide/Formoterol 160/4.5 [Symbicort 160/4.5] 2 inh IH BID 05/11/17 [History ] Cetirizine HCl [Zyrtec] 10 mg PO DAILY PRN 05/11/17 [History] Clopidogrel Bisulfate [Plavix] 75 mg PO DAILY 05/11/17 [History] Furosemide [Lasix] 20 mg PO BID 05/11/17 [History] Insulin DETEMIR [Levemir] 40 unit SQ BID 05/11/17 [History] Insulin LISPRO [HumaLOG] 26 units SQ TID 05/11/17 [History] Melatonin [Melatin] 3 mg PO HS PRN 05/11/17 [History] Naproxen Sodium [Aleve] 220 mg PO BID PRN 05/11/17 [History] OxyCODONE/APAP 5/325 [Percocet 5/325 MG] 1 each PO Q4HR 05/11/17 [History] Polyethylene Glycol 3350 [MiraLAX Powder Bulk 17.9 Oz] 17 g PO DAILY PRN [History] Potassium Chloride [K-Tab ER] 10 meq PO DAILY 05/11/17 [History] Potassium Chloride [K-Tab ER] 10 meq PO DAILY 05/11/17 [History] Allergies/Adverse Reactions: Allergies Cephalosporins Allergy (Verified 05/11/17 18:39) Anaphylaxis montelukast [From Singulair] Allergy (Verified 05/11/17 18:39) Hives Penicillins Allergy (Verified 05/11/17 18:39) Anaphylaxis yellow dye Allergy (Verified 05/11/17 18:39) Anaphylaxis metformin Adverse Reaction (Verified 05/11/17 18:39) Muscle Pain [id number]-Coj Reductase Inhibitor [Statins] Adverse Reaction (Verified 18:39) Muscle Pain Date of admission: 05/11/17 17:41 Primary care physician: Binta Hebert Consults: 05/11/17 18:42 Consult to Physical Medicine/Rehab [CONS] Routine Reason for Consult: s/p spinal stroke, AAA repair Call Completed: Yes 05/11/17 18:43 Consult to Occupational Therapy [CONS] Routine Comment: Evaluate, develop and implement POC Reason for Consult: s/p AAA repair and spinal stroke Consult to Physical Therapy [CONS] Routine Comment: Evaluate, develop and implement POC Reason for Consult: s/p spinal stroke, AAA repair Consult to Recreational Therapy [CONS] Routine Comment: Evaluate, develop and implement POC Consult to Preconstruction Manager [CONS] Routine Reason for SW Consult: potential for f/u care. Discharging clinician: Kang Meadows Anticipated date of discharge: 05/21/17 - Patient Status Disposition: Home, Self-Care Functional capacity at discharge: uses cane/walker Overall status at discharge: patient is progressing back to baseline - Discharge Instructions Instructions: Endovascular Abdominal Aortic Aneurysm Repair (DC) Follow Up With: chad walker [Other] - 07/16/17 8:40 am Binta Hebert, GANG VIBRATOR OPERATOR [Primary Care Provider] - 06/02/17 (follow up appointment , as arranged) - Diet and Activity Activity: ambulate only with your walker Diet: diabetic diet Interval History: Patient had a left hemiparesis after a AAA repair probably loss of blood supply. Ischemic spinal injury. It has resolved is ambulating length of the garner the walker and doing well Hospital course: Mr. Ruffin is a 62 year old male He is had an excellent rehabilitation. With PT OT TR. Doing well cooperated walking length of the garner - Time Spent with Patient Total time spent providing and/or coordinating discharge services: Less than 30 minutes - Constitutional Vitals: Temp Pulse Resp BP Pulse Ox 98.0 F 93 16 137/71 93 05/20/17 20:30 05/20/17 20:30 05/20/17 20:30 05/20/17 20:30 05/20/17 20:30 General appearance: Present: cooperative, A&O X 3, pleasant, no acute distress - Head Head exam: Present: atraumatic, normocephalic - Neck Neck exam general surgery: Present: supple, trachea midline. Absent: lymphadenopathy - Respiratory Respiratory exam: Present: CTAB. Absent: accessory muscle use, rales, rhonchi, wheezes - Cardiovascular Cardiovascular exam: Present: RRR, +S1, +S2. Absent: diastolic murmur, gallop, rubs, systolic murmur - VTE Documentation of Mechanical Device: Graduated compression elastic hosiery
== END 2017-05-21 13:50 | disposition home or self-care (01) | DRG 57 ==
LOC: INPGRE 17:41
PROVIDERS: ADMIT Internal Medicine; ATTEND Internal Medicine